=== PATIENT | male | born 1960 | race Caucasian/White ===

== ENCOUNTER 2020-08-27 14:49 | Emergency (ER) | payer OTHER ==
[~2020-08-27] VITALS: Ht 182.9 cm; Wt 120.0 kg
[2020-08-27 16:13] VITALS: BP 149/79
[2020-08-27] MEDS ORDERED: ORPHENADRINE CITRATE 60 MG/2 ML VIAL. IM ONE (16:15)
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
[2020-08-27] MEDS ORDERED: NAPR-685 PO (16:43)
[2020-08-27] MEDS ORDERED: CYCL10TA2 PO (16:43)
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
[2020-08-27] MEDS ORDERED: ACETAMINOPHEN 500 MG TABLET PO ONE (17:00)
== END 2020-08-27 17:10 | disposition home or self-care (01) ==
LOC: ER 14:49
DX: R51.9 Headache, unspecified (principal); M54.2 Cervicalgia; M54.5 Low back pain; E78.00 Pure hypercholesterolemia, unspecified; G89.11 Acute pain due to trauma; V49.88XA Car occupant (driver) (passenger) injured in other specified transport accidents, initial encounter; Y93.89 Activity, other specified; Y92.488 Other paved roadways as the place of occurrence of the external cause; Y99.8 Other external cause status
CPT/HCPCS: 70450; 72125; 72128; 72131; 96372; 99285; J2360